=== PATIENT | male | born 1980 | race Caucasian/White ===

== ENCOUNTER → 2024-12-02 17:06 | Outpatient (BNVA) | payer MEDICAID, SELFPAY | PROVIDERS: Family Provider Family Medicine; PCP Nurse Practitioner Family | DX: R52 Pain, unspecified (principal) | CPT/HCPCS: 87400 ==

== ENCOUNTER 2024-12-10 00:16 | Emergency (ER) | payer MEDICAID, SELFPAY ==
[2024-12-10 00:16] VITALS: BP 146/97; PULSE 98; RESP 16; TEMP 36.3; O2SAT 99
--- NOTE | 2024-12-10 01:08 | ED_ITS ---
HPI - Extremity Problem General: Chief complaint: Extremity Injury, Upper Stated complaint: Right Hand Injury Time Seen by Provider: 12/10/24 00:33 Source: patient Mode of arrival: ambulatory Limitations: no limitations History of Present Illness: Patient is a 44-year-old male who presents the emergency department after laceration to left pointer finger. Patient states he was trying to cut a hose with a brand-new knife, it slipped and he cut the dorsum of his left finger. Denies sensory changes or difficulty moving his finger, is a superficial flap- like laceration. Tetanus was updated a couple of years ago. No other symptoms reported at this time. MD Complaint: extremity pain Onset (ago): minute(s) Pain Consistency: constant Location: left and upper extremity (Finger/laceration) Radiation: none Associated symptoms: Deny chest pain, fever(s) or rash Context: other (Cut finger with knife) Related Data Previous Rx's Medication Instructions Recorded cephalexin 500 mg capsule 500 mg PO BID 5 days #10 caps 12/10/24 Allergies Allergy/AdvReac Type Severity Reaction Status Date / Time No Known Allergies Allergy Verified 12/10/24 00:21 Review of Systems General: Reports: 10 or more systems reviewed and unremarkable except in HPI and below Const: Denies: fever(s) or chills Card: Denies: chest pain Resp: Denies: dyspnea GI: Denies: abdominal pain, nausea, vomiting or diarrhea Musc: Reports: extremity pain (Left index finger); Denies: joint pain Skin/Breast: Reports: skin pain, skin tenderness and new lesions (Lac to left index finger); Denies: rash Neuro: Denies: headache(s) [facility] ED PFSH: Family History Father Cancer Social History Smoking and tobacco/nicotine status: current every day tobacco/nicotine user cigarettes Alcohol intake: current Alcohol intake frequency: few times a month Substance/Drug Use: former Physical Exam Const: COMMON NORMALS: no acute distress, average body habitus, patient orient ed x3, no limitations, healthy appearing, alert and well nourished HENMT: COMMON NORMALS: normocephalic and atraumatic HEAD & SCALP: normocephalic and atraumatic Neck/C-Spine: COMMON NORMALS: full ROM, no lymphadenopathy, supple and no meningeal signs Resp: COMMON NORMALS: normal respiratory effort, No use of accessory muscles and clear to auscultation bilaterally AUSCULTATION: clear to auscultation bilaterally Cardio: COMMON NORMALS: regular rate and regular rhythm RATE: regular rate RHYTHM: regular rhythm Extremity: COMMON NORMALS: full ROM and capillary refill normal NARRATIVE EXTREMITY EXAM: Distal sensations are intact to the left pointer finger. Full flexion and extension without complication Neuro: COMMON NORMALS: patient oriented x3, moves all extremities, no focal motor deficits and no sensory deficits noted SENSORIUM/ORIENTATION: Yes alert MENINGEAL SIGNS: Yes no meningeal signs Skin: COMMON NORMALS: turgor normal NARRATIVE SKIN EXAM: 3 to 4 cm flap-like superficial lacerati on to dorsum of left index finger with no active bleeding. Does not involve the muscle or tendons. No contamination or foreign body. No nailbed involvement. GENERAL SKIN EXAM: turgor normal Procedures Laceration Laceration 1: Site: upper extremity Side (If applicable): left Size (cm): 3 Description: flap and clean Depth: simple, single layer Local Anesthetic: lidocaine 2% Amount of anesthesia used (mL): 1 Pre-repair: wound explored and irrigated extensively Skin layer closed with: other (Prolene) Size (cm): 4-0 Number of sutures: 6 Technique: simple, interrupted Nerve Block Nerve Block 1: Local Anesthetic: lidocaine 2% Amount of anesthesia used (mL): 6 Side: left Nerve Blocks: digital Procedure Successful: Yes Patient Tolerated Procedure: well Complications: none Course Vital Signs: Vital signs: Vital Signs Temperature 97.4 F L 12/10/24 00:16 Pulse Rate 98 12/10/24 00:16 Respiratory Rate 16 12/10/24 00:16 Blood Pressure 146/97 12/10/24 00:16 Pulse Oximetry 99 12/10/24 00:16 MDM - Extremity (Nontraumatic) Medical Decision Making This laceration was superficial did not involve muscle or tendon layer and was repaired, see procedure note. Tetanus was up-to-date. Will start him on Keflex. Proper wound care was discussed and signs and symptoms to watch for were also discussed. He endorsed understanding. Dose of [place] given here for pain. No radiology studies performed this visit Discharge Plan Discharge Patient Disposition: Home Clinical Impression: Laceration of left index finger Condition: Stable Prescriptions: New cephalexin 500 mg capsule 500 mg PO BID 5 Days Qty: 10 0RF Discharge Orders: Discharge ED (Routine); Ordered 12/10/24 Ordered By: Geremias Lassiter Referrals: Yenni Shine NP [Primary Care Provider] - Patient Instructions: Laceration (ED) Activity Restrictions/Additional Instructions: Sutures out in 5 to 7 days. Antibiotics as prescribed. Wound care as we discussed, do not soak wound in water. Keep wound dry to aid in proper healing. Tylenol/ibuprofen for pain. Return with any signs of infection. Coding Level of Care Code ED Wafer Fab Technician for Shanita Ortega
[2024-12-10] MEDS: HYDROcodone-acetaminophen 7.5-325 mg Tablet 1 TAB PO (01:29)
[2024-12-10 01:36] VITALS: BP 129/85; PULSE 89; O2SAT 94
--- NOTE | 2024-12-10 17:08 | PC.NURSE ---
called requesting rx called to [facility] in [place] vs it was sent to [facility].
== END 2024-12-10 01:22 | disposition home or self-care (01) ==
PROVIDERS: Emergency Provider Physician Assistant; PCP Nurse Practitioner Family
DX: S61.211A Laceration without foreign body of left index finger without damage to nail, initial encounter (principal); F17.210 Nicotine dependence, cigarettes, uncomplicated; W26.0XXA Contact with knife, initial encounter
CPT/HCPCS: 12002; 99283

== ENCOUNTER 2025-11-03 15:32 | Emergency (ER) | payer OTHER, SELFPAY ==
[2025-11-03 15:40] VITALS: BP 157/104; PULSE 101; TEMP 36.6; O2SAT 95
--- NOTE | 2025-11-03 15:49 | XRR_ITS ---
PROCEDURE INFORMATION: Exam: XR Chest Exam date and time: 11/03/2025 3:49 PM Age: 45 years old Clinical indication: Angina; Additional info: Cp TECHNIQUE: Imaging protocol: Radiologic exam of the chest. Views: 1 view. COMPARISON: No relevant prior studies available. FINDINGS: Lungs: Unremarkable. No consolidation. Pleural spaces: Unremarkable. No pleural effusion. No pneumothorax. Heart/Mediastinum: Unremarkable. No cardiomegaly. Bones/joints: Unremarkable. XR/XR chest 1V portable [id number] IMPRESSION: No acute findings.
--- NOTE | 2025-11-03 15:49 | ECG_ITS ---
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
[2025-11-03 15:56] VITALS: BP 144/91; PULSE 101; RESP 16; O2SAT 94
[2025-11-03 15:56] LABS: Nucleated Red Blood Cells % 0 %
[2025-11-03 15:58] LABS: Hematocrit 43.8 % (37-53); Hemoglobin 15.00 g/dL (11.27-16.99); Mean Corpuscular HGB Conc 34.2 g/dL (30-55); Mean Corpuscular Hemoglobin 28.9 pg (27-33); Mean Corpuscular Volume 84.4 fl (82-101); Platelet Count 222 10^3/cmm (157-399); Red Blood Count 5.19 10^6/uL (3.85-5.65); White Blood Count 7.37 10^3/uL (3.29-11.43)
--- NOTE | 2025-11-03 16:06 | ED_ITS ---
HPI - Headache 2 General: Chief Complaint: Headache Stated Complaint: CP going into back No BM 2days heart burn X week Time Seen by Provider: 11/03/25 15:39 Source: patient Mode of arrival: ambulatory Limitations: no limitations History of Present Illness: Patient is a 45-year-old male who presents the emergency department with multiple complaints. For the past few days he has had symptoms of abdominal pain, constipation, headache, chest pain, back pain, overall body aches, and overall fatigue and malaise. Also is reporting fever and chills, states he has been around sick contacts with similar symptoms recently. Notes that he had some heartburn today, and the chest pain he is noting feels like a burning sensation. No shortness of breath or other respiratory symptoms noted. in the room states that he has seemingly been so tired that he has been in and out of consciousness throughout the day. He took some magnesium citrate earlier this morning for his abdominal pain as he thought he was constipated, did not get any relief. He is minimally tachycardic at this time but rest of vital stable. He is tired appearing but nontoxic. No other pertinent past medical history is reported to me, he has no personal cardiac history. Associated symptoms: Reports chest pain, fever(s), malaise, nausea and vomiting; Deny lightheadedness or rash Related Data Previous Rx's ?Medication ?Instructions ?Recorded ketorolac 10 mg tablet 10 mg PO Q8H PRN pain 5 days #15 11/03/25 tabs ondansetron 4 mg disintegrating 4 mg PO TID PRN nausea and 11/03/25 tablet vomiting #30 tabs Allergies Allergy/AdvReac Type Severity Reaction Status Date / Time No Known Allergies Allergy Verified 11/03/25 15:56 Review of Systems 2 General: Reports: 10 or more systems reviewed and unremarkable except in HPI and below Const: Reports: fever(s), chills, body aches, fatigue and malaise Eyes: Denies: change in vision ENMT: Denies: throat pain, ear or mastoid pain or nasal discharge Card: Reports: chest pain; Denies: palpitations, swelling of feet/ankles or lightheadedness Resp: Denies: dyspnea, productive cough or wheezing GI: Reports: abdominal pain, nausea and vomiting; Denies: diarrhea or constipation : Denies: flank pain, difficulty urinating, dysuria or urinary frequency Musc: Reports: back pain; Denies: neck pain or joint pain Skin/Breast: Denies: rash Neuro: Reports: headache(s); Denies: numbness in extremities or weakness in extremities PFSH ED 2 PFSH: Medical History Psychiatric care Family History Father Cancer Social History Smoking and tobacco/nicotine status: current every day tobacco/nicotine user cigarettes Alcohol intake: current Alcohol intake frequency: few times a month Substance/Drug Use: former Physical Exam 2 Const: COMMON NORMALS: patient oriented x3 and no limitations GENERAL APPEARANCE: cooperative and well developed ORIENTATION/CONSCIOUSNESS: Yes awake, Yes oriented to person, Yes oriented to place and Yes oriented to time OTHER: Overall tired appearing, but nontoxic HENMT: COMMON NORMALS: normocephalic, atraumatic and hearing grossly normal bilaterally HEAD & SCALP: normocephalic and atraumatic Eye: COMMON NORMALS: Equal, round and reactive pupils present, EOMs intact bilaterally and conjunctivae normal CONJUNCTIVA: Yes conjunctivae normal P UPIL: Yes Equal, round and reactive pupils present Neck/C-Spine: COMMON NORMALS: full ROM, supple and no JVD Resp: COMMON NORMALS: normal respiratory effort, No retractions, No use of accessory muscles and clear to auscultation bilaterally AUSCULTATION: clear to auscultation bilaterally Cardio: COMMON NORMALS: no JVD, regular rate, regular rhythm, No clicks present (Cardio), No murmurs present (Cardio) and No rub (Cardio) RATE: r egular rate RHYTHM: regular rhythm GI: COMMON NORMALS: Normal to inspection, nondistended, normoactive bowel sounds present, Soft to palpation and non-tender AUSCULTATION: Yes normoactive bowel sounds PALPATION: Yes Soft to palpation RECTAL EXAM: Yes deferred Extremity: COMMON NORMALS: normal to inspection, full ROM and capillary refill normal Neuro: COMMON NORMALS: patient oriented x3, moves all extremities, no focal motor deficits and no sensory deficits noted SENSORIUM/ORIENTATION: Yes oriented to person, Yes oriented to place and Yes oriented to time Skin: COMMON NORMALS: no rashes or lesions noted GENERAL SKIN EXAM: no rashes or lesions noted Course 2 Vital Signs: Vital signs: Vital Signs Temperature 97.8 F 11/03/25 15:40 Pulse Rate 102 H 11/03/25 17:05 Respiratory Rate 18 11/03/25 17:05 Blood Pressure 122/64 11/03/25 17:05 Pulse Oximetry 95 11/03/25 17:05 Oxygen Delivery Me thod Room Air 11/03/25 17:05 MDM - Headache Medical Decision Making The patient presented for multiple symptoms. Notably he was complaining of chest pain that was burning in nature, troponin here was negative. He had no pertinent cardiac history but he had expressed most concern over the chest pain. He was also having bodyaches, and symptoms of viral infection and he is COVID- positive here. His x-ray negative for any focal infiltrate, blood work is all unremarkable. He has been mostly stable with his vitals, heart rate was initially a little tachycardic this was improved after IV fluids so I suspect an element of dehydration as he has not been having as much p.o. intake recently. He feels quite a bit better after 2 L of fluid, pain medicine here and nausea meds. He is stable for discharge home as his oxygen has been normal and he does have notable improvement in the ED, discussed return precautions and he verbalizes understanding. Lab Data 11/03/25 15:47 11/03/25 15:47 Laboratory Results WBC 7.37 10^3/uL (3.29-11.43) 11/03/25 15:47 RBC 5.19 10^6/uL (3.85-5.65) 11/03/25 15:47 Hgb 15.00 g/dL (11.27-16.99) 11/03/25 15:47 Hct 43.8 % (37-53) 11/03/25 15:47 MCV 84.4 fl (82-101) 11/03/25 15:47 MCH 28.9 pg (27-33) 11/03/25 15:47 MCHC 34.2 g/dL (30-55) 11/03/25 15:47 RDW 12.7 % (12.1-15.1) 11/03/25 15:47 Plt Count 222 10^3/cmm (157-399) 11/03/25 15:47 MPV 9.3 fL (7.4-10.4) 11/03/25 15:47 Neut % (Auto) 79.5 % 11/03/25 15:47 Lymph % (Auto) 5.8 % 11/03/25 15:47 [place] % (Auto) 10.9 % 11/03/25 15:47 Eos % (Auto) 3.0 % 11/03/25 15:47 Baso % (Auto) 0.4 % 11/03/25 15:47 Neut # (Auto) 5.86 10^3/uL (1.8-7.7) 11/03/25 15:47 Lymph # (Auto) 0.4 10^3/uL (0.8-4.8) L 11/03/25 15:47 [place] # (Auto) 0.8 10^3/uL (0.2-0.9) 11/03/25 15:47 Eos # (Auto) 0.2 10^3/uL (0.0-0.8) 11/03/25 15:47 Baso # (Auto) 0.0 10^3/uL (0.0-0.1) 11/03/25 15:47 Nucleated RBC % (auto) 0 % 11/03/25 15:47 Nucleated RBCs # 0.0 /100WBC 11/03/25 15:47 Sodium 136 mmol/L (136-145) 11/03/25 15:47 Potassium 4.3 mmol/L (3.5-5.1) 11/03/25 15:47 Chloride 100 mmol/L (98-107) 11/03/25 15:47 Carbon Dioxide 25 mmol/L (22-29) 11/03/25 15:47 Anion Gap 15.3 (5-19) 11/03/25 15:47 BUN 13 mg/dL (6-20) 11/03/25 15:47 Creatinine 1.0 mg/dL (0.7-1.2) 11/03/25 15:47 GFR Calculation 81.2 mL/min (90-130) L 11/03/25 15:47 Glucose 105 mg/dL (65-115) 11/03/25 15:47 Calculated Osmolality 282 mOsm/kg (285-295) L 11/03/25 15:47 Calcium 9.2 mg/dL (8.5-10.5) 11/03/25 15:47 Total Bilirubin 0.3 mg/dL (0.15-1.2) 11/03/25 15:47 AST 43 U/L (0-40) H 11/03/25 15:47 ALT 42 U/L (0-41) H 11/03/25 15:47 Alkaline Phosphatase 128 U/L (40-130) 11/03/25 15:47 Troponin T Baseline < 6 ng/L (0-15) 11/03/25 15:47 Total Protein 7.2 g/dL (6.6-8.7) 11/03/25 15:47 Albumin 4.5 g/dL (3.5-5.2) 11/03/25 15:47 Globulin 2.7 g/dL (1.3-4.6) 11/03/25 15:47 Lipase 65 U/L (13-60) H 11/03/25 15:47 Influenza A (PCR) Negative (Negative) 11/03/25 16:03 Influenza Type B (PCR) Negative (Negative) 11/03/25 16:03 RSV (PCR) Negative (Negative) 11/03/25 16:03 SARS-CoV-2 (PCR) Positive (Negative) A 11/03/25 16:03 No radiology studies performed this visit Discharge Plan Discharge Patient Disposition: Home Clinical Impression: COVID-19, Dehydration Condition: Stable Prescriptions: New ketorolac 10 mg tablet 10 mg PO Q8H PRN (Reason: pain) 5 Days Qty: 15 0RF ondansetron 4 mg tablet,disintegrating 4 mg PO TID PRN (Reason: nausea and vomiting) Qty: 30 0RF Discharge Orders: Discharge ED (Routine); Ordered 11/03/25 Ordered By: Geremias Lassiter Referrals: Corbin Devries DO [Primary Care Provider, [facility]] Patient Instructions: Patient Portal & Antwan Instructions Activity Restrictions/Additional Instructions: Discharge Instructions for COVID-19 Your Diagnosis You were diagnosed with COVID-19 and dehydration. You received fluids and pain medication in the emergency department, and your symptoms have improved. Your blood work, heart tracing (EKG), and chest X-ray were all normal. You are now ready to go home to rest and recover. What to Do at Home Rest and Hydration: - Get plenty of rest to help your body fight the infection - Drink plenty of fluids (water, sports drinks, broth, tea) to stay hydrated - aim for at least 8-10 glasses per day - Eat nutritious foods when you feel able Symptom Management: - Continue taking xexd-the-becyium pain relievers like acetaminophen (Tylenol) or ibuprofen (Advil, Motrin) as needed for fever, body aches, and headache - Follow the dosing instructions on the bottle - Use a humidifier or breathe steam from a hot shower to help with congestion Isolation to Protect Others: - Stay home and isolate from others for at least 5 days from when your symptoms started - Wear a mask if you must be around other people in your home - Stay in a separate room from other household members when possible - Use a separate bathroom if available - Avoid contact with people at high risk for severe COVID-19 (elderly, immunocompromised) - You can end isolation after 5 days if you have been fever-free for 24 hours without fever-reducing medication AND your symptoms are improving - Continue to wear a mask around others through day 10 When to Return to the Emergency Department Seek immediate medical attention if you develop any of these warning signs: - Difficulty breathing or shortness of breath - Persistent chest pain or pressure - New confusion or difficulty staying awake - Bluish lips or face - Inability to keep down fluids or severe dehydration - High fever that does not improve with medication - Symptoms that improve but then suddenly worsen Follow-Up Care - Contact your primary care doctor within 2-3 days to update them on your condition - Most people with mild COVID-19 recover within 1-2 weeks - Some symptoms like fatigue or cough may persist for several weeks Additional Information - Monitor your symptoms daily - If you have a pulse oximeter at home, check your oxygen level - it should stay above 94% - Wash your hands frequently - Clean and disinfect frequently touched surfaces in your home If you have any questions or concerns about your recovery, please contact your doctor or call our nurse advice line. Print Language: South African Coding Level of Care Code ED Rental Management Trainee for Shanita Ortega
[2025-11-03 16:14] VITALS: RESP 16
[2025-11-03] MEDS: morphine 4 mg/mL SDV 1 mL IVP (16:14)
[2025-11-03] MEDS: ondansetron 2 mg/ML SDV 2 mL 4 MG IVP (16:14)
[2025-11-03 16:15] LABS: Alanine Aminotransferase 42 U/L (0-41); Albumin Level 4.5 g/dL (3.5-5.2); Alkaline Phosphatase 128 U/L (40-130); Anion Gap 15.3 (5-19); Aspartate Amino Transferase 43 U/L (0-40); Blood Urea Nitrogen 13 mg/dL (6-20); Calcium 9.2 mg/dL (8.5-10.5); Carbon Dioxide 25 mmol/L (22-29); Chloride 100 mmol/L (98-107); Globulin 2.7 g/dL (1.3-4.6); Glucose 105 mg/dL (65-115); Lipase 65 U/L (13-60); Osmolality Calculated 282 mOsm/kg (285-295); Potassium 4.3 mmol/L (3.5-5.1); Sodium 136 mmol/L (136-145); Total Protein 7.2 g/dL (6.6-8.7)
[2025-11-03 16:16] LABS: Troponin(5th) Baseline < 6 ng/L (0-15)
[2025-11-03 16:35] VITALS: BP 122/84; PULSE 102; RESP 16; O2SAT 95
--- NOTE | 2025-11-03 16:44 | ECG_ITS ---
[facility] Pat Name: Noah Gonzalez Department: Room: Gender: Male Correctional Guard: : 1980 Requested By: Geremias Evans Order Number: [id number] Reading MD: DARYN HIDALGO Measurements Intervals [place] Rate: 97 P: 18 [place]: 167 QRS: 9 QRSD: 101 T: 20 QT: 331 QTc: 421 Interpretive Statements SINUS RHYTHM LOW QRS VOLTAGE IN PRECORDIAL LEADS [QRS DEFLECTION < 1.0 mV IN CHEST LEADS] NONSPECIFIC T-WAVE ABNORMALITY Compared to ECG 11/03/2025 15:50:52 T-wave abnormality now present Sinus tachycardia no longer present Electronically Signed On 11-03-2025 20:33:09 GIN FEEDER by DARYN HIDALGO [email or web address]
[2025-11-03 16:55] LABS: Respiratory Syncytial Virus Ce NEGATIVE (Negative)
[2025-11-03 17:03] LABS: SARS-CoV-2 PCR Positive (Negative)
--- NOTE | 2025-11-03 17:04 | PC.NURSE ---
Covid+ result from lab
[2025-11-03 17:05] VITALS: BP 122/64; PULSE 102; RESP 18; O2SAT 95
[2025-11-03 17:11] VITALS: BP 122/64; PULSE 130; RESP 18; TEMP 37.1; O2SAT 97
== END 2025-11-03 17:28 | disposition home or self-care (01) ==
PROVIDERS: Emergency Provider Physician Assistant; PCP Family Medicine
DX: U07.1 COVID-19 (principal); E86.0 Dehydration; Z11.52 Encounter for screening for COVID-19; F17.210 Nicotine dependence, cigarettes, uncomplicated
CPT/HCPCS: 36415; 71045; 80053; 83690; 84484; 85025; 87637; 93005; 96374; 96375; 99285; J1885; J2270; J2405; J7030; J9999